=== PATIENT | male | born 2000 | race Caucasian/White ===

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

== ENCOUNTER 2019-06-20 20:28 | Emergency (ER) | payer MEDICAID | END 2019-06-20 22:54 | disposition home or self-care (01) | LOC: FTE 20:28 | DX: J02.9 Acute pharyngitis, unspecified (principal); J04.0 Acute laryngitis | CPT/HCPCS: 70490; 99284-25 ==